=== PATIENT | female | born 1965 ===

== ENCOUNTER 2019-01-18 07:28 | Day surgery (SDC) | payer OTHER ==
--- NOTE | 2019-01-17 11:00 | NUR ---
ADMITTED VIA [facility] #[id number].
[~2019-01-18] VITALS: Ht 167.6 cm; Wt 97.5 kg
[2019-01-18] VITALS (12 sets, daily range): BP systolic 103–117; BP diastolic 62–80
--- NOTE | 2019-01-18 07:41 | Short Stay Surgery H&P ---
History of Present Illness History of Present Illness Chief Complaint Abdominal painss/GERDs HPI Vandana Colunga is a 53 year old female who was admitted on for GERDS/abdominal pains Patient History Allergies: Coded Allergies: CODEINE (Verified Allergy, Severe, 01/17/19) SEVERE DIZZINESS Past Surgeries: (1) H/O rotator cuff surgery Review of Systems Cardiovascular: Reports: no symptoms Respiratory: Reports: no symptoms Skeletal: Reports: trauma Gastrointestinal: Reports: gastro esophageal reflux disease Genitourinary: Reports: no symptoms Neurologic: Reports: no symptoms Endocrine: Reports: no symptoms Hematologic: Reports: no symptoms Physical Exam Skin: normal HENT: normal Heart: normal Lungs: normal Abdomen: abnormal Extremities: normal Genitourinary: normal Plan Plan of Care Upper GI. endoscopy with biopsy Preop Interventions None' Summary of Findings See the reports Attestation Are the patient's medical conditions optimized for surgery? Attestation Response: yes Susan Sargent MD Jan 18, 2019 07:41
--- NOTE | 2019-01-18 07:42 | Pre-Procedure Note/Attestation ---
Pre-Procedure Note/Attestation Complete Prior to Procedure Planned Procedure: left Procedure Narrative: Endoscopic examination of the upper GI. tract with taking biopsy as needed. Indications for Procedure Pre-Operative Diagnosis: R/O Peptic ulcer/gastritis. Attestation I attest that I discussed the nature of the procedure; its benefits; risks and complications; and alternatives (and the risks and benefits of such alternatives ), prior to the procedure, with the patient (or the patient's legal credit and collections representative). I attest that, if there was a reasonable possibility of needing a blood transfusion, the patient (or the patient's legal credit and collections representative) was given the [place] [employer] [facility] standardized written summary, pursuant to the [place] Blood Safety Act ([place] Health and Safety Code # 1645, as amended). I attest that I re-evaluated the patient just prior to the surgery and that there has been no change in the patient's H&P, except as documented below: Susan Sargent MD Jan 18, 2019 07:42
--- NOTE | 2019-01-18 07:44 | Anethesia Preoperative Eval ---
Anesthesia Pre-op PMH/ROS General Date of Evaluation: Jan 18, 2019 Time of Evaluation: 07:41 Anesthesiologist: Yasemin Steele CRNA ASA Score: ASA 2 Mallampati Score Class I : Soft palate, uvula, fauces, pillars visible Class II: Soft palate, uvula, fauces visible Class III: Soft palate, base of uvula visible Class IV: Only hard plate visible Mallampati Classification: Class II Surgeon: Rosetta Diagnosis: GERD Surgical Procedure: EGD diagnostic Anesthesia History: none Family History: no anesthesia problems Allergies: Coded Allergies: CODEINE (Verified Allergy, Severe, 01/17/19) SEVERE DIZZINESS Medications: see eMAR Patient NPO?: Yes Past Medical History Cardiovascular: Denies: HTN, CAD, [place], valve dz, arrhythmia, other Pulmonary: Denies: asthma, COPD, KIEL, other Gastrointestinal/Genitourinary: Reports: GERD; Denies: CRI, ESRD, other Neurologic/Psychiatric: Reports: depression/anxiety; Denies: dementia, CVA, TIA, other Endocrine: Denies: DM, hypothyroidism, steroids, other HEENT: Denies: cataract (L), cataract (R), glaucoma, QAGAN TAYAGUNGIN (L), QAGAN TAYAGUNGIN (R), other Hematology/Immune: Denies: anemia, DVT, bleeding disorder, other Musculoskeletal/Integumentary: Reports: other - lower back pain; Denies: OA, RA, DJD, DDD, edema Other: obesity PSxH Narrative: RTC repair, back surgery Anesthesia Pre-op Phys. Exam Physician Exam Vital Sign - Last 24 Hours 01/18/19 07:50 Temp 97.0 Pulse 70 Resp 18 B/P (MAP) 117/67 Pulse Ox 98 O2 Delivery Room Air Constitutional: NAD, other - obese Neurologic: CN 2-12 intact Cardiovascular: RRR Respiratory: CTA Gastrointestinal: S/NT/ND Airway Exam Mallampati Score: Class II MO: full Neck: FROM TMD: > 3 FB ROM: full Teeth: intact Dentures: no upper, no lower Anesthesia Pre-op A/P Risk Assessment & Plan Assessment: ASA 2, ok to proceed Plan: MAC Status Change Before Surgery: Yes Yasemin Steele CRNA Jan 18, 2019 07:44
[2019-01-18] MEDS ORDERED: LR 1000ml ONE (08:00)
[2019-01-18] MEDS ORDERED: Lidocaine 1% MPF 10mg/ml 5ml ONE (08:00)
[2019-01-18] MEDS ORDERED: Propofol 200mg/20ml IV ONE (08:00)
[2019-01-18] MEDS ORDERED: ACID GONE ANTA355 M1 ORAL (08:10)
[2019-01-18] MEDS ORDERED: HYDROCIL INSTA1 EACH PO (08:10)
[2019-01-18] MEDS ORDERED: OMEPRAZOLE40 M1 ORAL (08:10)
--- NOTE | 2019-01-18 08:28 | Endoscopy Procedure Note ---
Endoscopy Procedure Note General Indication for Procedure: Abdominal pains, GERDs Procedures Performed: EGD - Mild gastritis with bile in the stomach otherwise normal UGI endoscopy, biopsy was taken per random from gastric body. Specimen: yes Pt Tolerated Procedure Well: Yes Estimated Blood Loss: none Anesthesia Anesthesiologist: Ms. Cedric CRNA Anesthesia: moderate sedation Medications Medication Given: see anesthesia record Inserted Devices Implant(s) used?: No Quality Quality of Bowel Preparation: Excellent Was there any complications?: No GI Core Measures 50 yrs or older w/o bx or poly: Not Applicable 10yrs. F/U not recommended: Not Applicable If not recommended, why?: Med reason:<3 yrs.: System Reason:<3 yrs.: Susan Sargent MD Jan 18, 2019 08:28
--- NOTE | 2019-01-18 08:29 | Discharge Instructions ---
Discharge Instructions Discharge Instructions Follow up with: Visit the doctor in office after 2 weekw, call first. For Congestive Heart Failure Reminder Report to your physician any weight gain of 5 pounds or more in one week. Susan Sargent MD Jan 18, 2019 08:29
--- NOTE | 2019-01-18 08:41 | Immediate Post-Op Evaluation ---
Immediate Post-Op Evalulation Immediate Post-Op Evalulation Procedure: EGD diagnostic Date of Evaluation: Jan 18, 2019 Time of Evaluation: 08:29 IV Fluids: LR 200ml Blood Pressure Systolic: 112 Blood Pressure Diastolic: 80 Pulse Rate: 70 Respiratory Rate: 20 O2 Sat by Pulse Oximetry: 100 Temperature (Fahrenheit): 97.0 Pain Score (1-10): 0 Nausea: No Vomiting: No Complications none Patient Status: awake, reacts, patent Hydration Status: adequate Given Within 1 Hr of Incision: Yasemin Arroyo CRNA Jan 18, 2019 08:41
--- NOTE | 2019-01-18 12:13 | 48 Hour Post Anesthesia Eval ---
Post Anesthesia Evaluation Procedure: EGD diagnostic Date of Evaluation: Jan 18, 2019 Time of Evaluation: 12:12 Blood Pressure Systolic: 113 0: 71 Pulse Rate: 64 Respiratory Rate: 18 Temperature (Fahrenheit): 97.0 O2 Sat by Pulse Oximetry: 98 Airway: patent Nausea: No Vomiting: No Pain Intensity: 0 Hydration Status: adequate Cardiopulmonary Status: stable Mental Status/LOC: patient returned to baseline Follow-up Care/Observations: per GI Post-Anesthesia Complications: none Follow-up care needed: ready to discharge Yasemin Steele CRNA Jan 18, 2019 12:13
--- NOTE | 2019-01-18 16:15 | Pre-op HX & Phy Repo 2 SIG ---
DATE OF ADMISSION: 01/18/2019 The patient had to be medically examined before undergoing the procedure for upper GI endoscopy for which she has been scheduled for and this process was needed to clear the patient medically at this time, and therefore the billing, which is made for this exam, accordingly should be paid for. HISTORY OF PRESENT ILLNESS: The patient is a 53-year-old female who is being seen prior to undergoing the procedure of upper GI endoscopy for which she has been scheduled for evaluation of her GI symptoms that she has suffered subsequent to her work injury. 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 The job required for her to have multiple activities including moving and lifting and pushing and pulling. Due to this process of working, she developed dorsolumbar disk disease for which she had to undergo a surgical procedure. At this point, the patient was seen by me earlier just a month ago as she was complaining basically of suffering from epigastric pain, which was difficult for her to function on a daily basis as she felt also burning sensation. The patient did have history of taking nonsteroidal anti-inflammatory agents for a long period of time as well. She reported that the symptoms started when she was placed on these medications that was required to calm her pain that she was suffering from dorsolumbar spine as well. Currently, the patient also does have the same symptoms and she has been treated with omeprazole and anti-acid medications to which she responded good in the past. She does complain of moderate heartburn at this point, for which as I mentioned, she is taking omeprazole. She does not have any difficulty swallowing. She denied having any hematemesis, melena, hematochezia, or GI bleeding in the past. She reports that she never had any GI condition before being injured at job site and being started on medication of nonsteroidal anti-inflammatory agents. She denied having any major diarrhea or constipation. PAST MEDICAL HISTORY: Basically nonsignificant except her cholesterol has been borderline, but she denies having any hypertension, arthritis, diabetes, etc. PAST SURGICAL HISTORY: She has had surgery for rotator cuff shoulder 7 years ago and also dorsolumbar surgery for the disc disease in 2018. ALLERGIES: Nonsignificant except to codeine. FAMILY HISTORY: Mother has had history of hypertension. HABITS: She drinks very small amounts per month and does not smoke cigarettes. MEDICATIONS: Omeprazole 20 mg, periodic Advil and fiber medications. REVIEW OF SYSTEMS: Basically history of present as mentioned. She basically complains of abdominal pain, which is moderate in intensity at this point. Also, she complains of experiencing pain over lower back area as well. There is no cardiac condition, chest pain, shortness of breath, cough, etc. PHYSICAL EXAMINATION: GENERAL: Reveals alert and oriented female, does not seem to be in any acute distress. VITAL SIGNS: All stable. HEENT: Normocephalic. Pupils are equal in size and reactive to light and accommodation. No visible jaundice. Buccal cavity, tongue midline, well hydrated. No ulcers. NECK: Supple. No JVD, thyromegaly, or adenopathy. CHEST: Clear to auscultation and percussion. No rales or rhonchi. HEART: S1, S2 normal. Regular rhythm. No gallops or murmur noted. ABDOMEN: Nonsignificant. There is no hepatosplenomegaly. The abdomen is obese, however. There is no palpable mass. EXTREMITIES: Nonsignificant except tenderness over her lower back as mentioned. INITIAL PREOPERATIVE IMPRESSION: 1. Abdominal pain, epigastric pain of uncertain etiology, rule out NSAID-induced gastropathy, peptic ulcer disease, gastritis, esophagitis, secondary to side effects of NSAID medications. 2. History of bodily injury, work related. 3. History of anxiety, depression and borderline hyperlipidemia. RECOMMENDATION: The patient at this time seems to be quite stable to undergo the procedure of upper GI endoscopy, which requires anesthesia and this examination was done to basically clear the patient medically. The patient understands the risks and benefits of the procedure, and as such will sign the consent. Said Bradley Sargent DR: MAIKEL JOB#: [id number] CC:
--- NOTE | 2019-01-18 16:30 | Operative Note - Dictated ---
DATE OF OPERATION: 01/18/2019 SURGEON: Susan Sargent M.D. PROCEDURE: Esophagogastroduodenoscopy with biopsy. PREOPERATIVE DIAGNOSES: Abdominal pain, epigastric pain, rule out peptic ulcer disease, gastritis induced by usage of NSAIDs. POSTOPERATIVE DIAGNOSES: Mild generalized gastritis and evidence of bile in the stomach consistent with duodenogastric bile reflux. Biopsy was taken per random from gastric body. MEDICATION USED: Per Ms. Cedric CRNA, tennis net maker. INSTRUMENT: GIF Olympus upper GI video endoscope. DESCRIPTION OF PROCEDURE: The patient after arriving at the endoscopy unit, was told about risks and benefits of the procedure, which she accepted and signed informed consent. At this point, the scope was passed through the cricopharyngeal area, was lodged into the upper esophagus and gradually advanced towards gastroesophageal junction. The entire length of the esophagus looked normal, as there was no any evidence of pathology such as ulceration, stricture, exudate, etc. GE junction also looked normal without any evidence of Palmer's or hiatal hernia. At this time, the scope was advanced into the stomach. Gastric cavity was distended with insufflation of air. There was seen [id number] amount of bile collected in the upper part of the stomach and the fundal area. Underlying mucosa showed evidence of minimal inflammatory process with congestion of gastric mucosa and generalized erythema consistent with mild gastritis. There was no any evidence of ulcers, polyps, tumors, etc. A retroflexion maneuver was also applied and the area of the gastroesophageal junction was examined in a closer fashion, which did not reveal any other pathologies. Finally, a random biopsy from gastric body obtained and subsequently the scope was passed through the antrum, pylorus, first and second portion of the duodenum, which all looked normal except some erythema in the antral area consistent with mild gastritis as has been mentioned earlier. Finally, the scope was pulled out and the procedure was terminated. The patient tolerated the procedure well, left the endoscopy room in a good condition. Susan Sargent M.D. DR: MAIKEL JOB#: [id number] CC:
== END 2019-01-18 09:50 | disposition home or self-care (01) ==
LOC: GAS 07:28
DX: K29.50 Unspecified chronic gastritis without bleeding (principal); F41.9 Anxiety disorder, unspecified; F32.9 Major depressive disorder, single episode, unspecified; K21.9 Gastro-esophageal reflux disease without esophagitis; Z88.6 Allergy status to analgesic agent; E66.9 Obesity, unspecified; Z68.34 Body mass index [BMI] 34.0-34.9, adult
CPT/HCPCS: 43239; J2704; 94003; 94150